=== PATIENT | male | born 1970 | race Two or more races ===

== ENCOUNTER 2019-12-10 12:54 | Emergency (ER) | payer OTHER ==
[~2019-12-10] VITALS: Ht 170.2 cm; Wt 74.8 kg
[2019-12-10 13:05] VITALS: BP 138/82
== END 2019-12-10 13:44 | disposition home or self-care (01) ==
LOC: ER 13:00
DX: L02.414 Cutaneous abscess of left upper limb (principal)
CPT/HCPCS: 10060; 99282; A6403; A6407

== ENCOUNTER 2019-12-15 13:29 | Emergency (ER) | payer OTHER ==
[~2019-12-15] VITALS: Ht 175.3 cm; Wt 74.8 kg
[2019-12-15 13:41] VITALS: BP 166/94
[2019-12-15] MEDS ORDERED: LIDOCAINE 1%-EPI 1:100,000 20 ML VIAL ONE (14:28)
--- NOTE | 2019-12-15 16:01 | NUR ---
I&D DONE. PT TOLERATED PROCEDURE WELL. PT PROVIDED W/ WOUND CARE. DISCHARGE HOME W/ PRESCRIPTION FOR BACTRIM. STABLE CONDITION.
== END 2019-12-15 16:03 | disposition home or self-care (01) ==
LOC: ER 13:53
DX: L02.413 Cutaneous abscess of right upper limb (principal)
CPT/HCPCS: 10060; 99283; J3490